=== PATIENT | female | born 1960 | race American Indian/Alaskan Native ===

== ENCOUNTER 2021-05-01 15:42 | Emergency (ER) | payer SELFPAY ==
--- NOTE | 2021-05-01 20:16 | Emergency Department Report ---
- General Chief Complaint: Dyspnea/Respdistress Stated Complaint: FLU SYMPTOMS/HEAD COLD Time Seen by Provider: 05/01/21 20:11 Source: patient Mode of arrival: Ambulatory Limitations: No Limitations - History of Present Illness Initial Comments: 60-year-old female with a past medical history of hypertension and asthma presents to the ER today with complaints of URI symptoms and cough. Patient states that symptoms started a couple days ago. Patient reports productive cough with associated chest congestion, wheezing, and nasal congestion. She denies any chest pain or shortness of breath. She denies any fever or chills. She does admit to tobacco abuse but she states that she quit smoking 2 weeks ago. She states that she does have a nebulizer machine at home but she has only been using it as needed. Patient states that she has never been admitted or intubated for her asthma. She denies any heart disease. She denies any ill contacts or recent travel. She reports no additional symptoms at this time. Patient blood pressure noted to be elevated at triage. She states that she did not take her blood pressure medications prior to coming in and she is also been taking uvry-iqq-bkenngr cough medications. MD Complaint: cough, rhinorrhea, nasal congestion -: Gradual, days(s) (2) - Related Data Previous Rx's Medication Instructions Recorded Last Taken Type ALBUTEROL NEB's [Proventil 0.083% 2.5 mg IH Q4HR 30 Days #1 box 05/01/21 Unknown Rx NEBS] Azithromycin [Zithromax Z-ERIKA] 250 mg PO DAILY #1 pack 05/01/21 Unknown Rx predniSONE [Deltasone] 40 mg PO QDAY #10 tab 05/01/21 Unknown Rx Allergies Allergy/AdvReac Type Severity Reaction Status Date / Time No Known Allergies Allergy Unverified 05/01/21 16:50 ED Review of Systems ROS: Stated complaint: FLU SYMPTOMS/HEAD COLD Other details as noted in HPI Comment: All other systems reviewed and negative Constitutional: denies: chills, fever Eyes: denies: eye pain, eye discharge, vision change ENT: congestion. denies: ear pain, throat pain, dental pain, hearing loss, epistaxis Respiratory: cough, wheezing. denies: orthopnea, shortness of breath, SOB with exertion, SOB at rest Cardiovascular: denies: chest pain, palpitations, dyspnea on exertion, edema, syncope, paroxysmal nocturnal dyspnea Gastrointestinal: denies: abdominal pain, nausea, diarrhea, constipation, hematemesis, hematochezia Genitourinary: denies: urgency, dysuria, frequency, hematuria, discharge, abnormal menses, dyspareunia Musculoskeletal: denies: back pain, joint swelling, arthralgia Skin: denies: rash, lesions, change in color, change in hair/nails, pruritus Neurological: denies: headache, weakness, numbness, paresthesias, confusion, abnormal gait, vertigo Psychiatric: as per HPI. denies: auditory hallucinations, visual hallucinations, homicidal thoughts, suicidal thoughts Hematological/Lymphatic: denies: easy bleeding, easy bruising, swollen glands ED Past Medical Hx - Past Medical History Previous Medical History?: Yes Hx Hypertension: Yes Hx Asthma: Yes - Surgical History Past Surgical History?: Yes Additional Surgical History: tonsils, right shoulder - Medications Home Medications: Home Medications Medication Instructions Recorded Confirmed Last Taken Type ALBUTEROL NEB's [Proventil 0.083% 2.5 mg IH Q4HR 30 Days #1 box 05/01/21 Unknown Rx NEBS] Azithromycin [Zithromax Z-ERIKA] 250 mg PO DAILY #1 pack 05/01/21 Unknown Rx predniSONE [Deltasone] 40 mg PO QDAY #10 tab 05/01/21 Unknown Rx ED Physical Exam - General Limitations: No Limitations General appearance: alert, in no apparent distress - Head Head exam: Present: atraumatic, normocephalic, normal inspection - Eye Eye exam: Present: normal appearance, PERRL, EOMI Pupils: Present: normal accommodation - ENT ENT exam: Present: normal exam, mucous membranes moist - Neck Neck exam: Present: normal inspection, full ROM - Respiratory Respiratory exam: Present: normal lung sounds bilaterally. Absent: respiratory distress, wheezes, rales, rhonchi, stridor - Cardiovascular Cardiovascular Exam: Present: regular rate, normal rhythm, normal heart sounds - GI/Abdominal GI/Abdominal exam: Present: soft. Absent: distended, tenderness, guarding, rebound - Extremities Exam Extremities exam: Absent: pedal edema - Neurological Exam Neurological exam: Present: alert, oriented X3, CN II-XII intact, normal gait - Psychiatric Psychiatric exam: Present: normal affect, normal mood - Skin Skin exam: Present: intact ED Course Vital Signs 05/01/21 05/01/21 16:52 20:09 Temperature 98.4 F Pulse Rate 76 83 Respiratory 18 Rate Blood Pressure 235/112 Blood Pressure 194/104 [Right] O2 Sat by Pulse 99 96 Oximetry ED Medical Decision Making - Radiology Data Radiology results: report reviewed - Medical Decision Making The patient is resting comfortably, is alert and in no distress. The patient has normal mental status and is neurologically intact. She appears well and and there is no significant dehydration. There is no respiratory distress and no signs of systemic toxicity. Her history , exam, diagnostic testing and current condition do not demonstrate an infectious process such as meningitis, severe pneumonia, retropharyngeal abscess, epiglottitis, severe asthma exacerbation, sepsis or other serious bacterial infection requiring further testing, treatment, consultation or admission at this time. Blood pressure was noted to be elevated at triage but patient admitted that she did not take any of her blood pressure medications today. She has no symptoms related to blood pre ssure and there is no evidence of endorgan damage on exam or by history. Discussed suspected diagnosis and treatment plan with patient. The patient's condition is stable and appropriate for discharge. The patient will pursue further outpatient evaluation with the primary care physician or other designated. Critical care attestation.: If time is entered above; I have spent that time in minutes in the direct care of this critically ill patient, excluding procedure time. ED Disposition Clinical Impression: URI (upper respiratory infection), Bronchitis Disposition: DC-01 TO HOME OR SELFCARE Is pt being admited?: No Does the pt Need Aspirin: No Condition: Stable Instructions: Upper Respiratory Infection, Adult, Acute Bronchitis, Adult, [id number], Chronic Bronchitis (ED) Additional Instructions: I recommend that you use your nebulizer every 4 hours for shortness of breath and wheezing. I also recommend that you take the prednisone and antibiotics as prescribed. I recommend that if you are to use a babk-guk-tiqvwto cough medication I would recommend that you use the HBP cough medication from [facility]-fzw-vlucuj[facility]. Recommend lots of fluids. Take your blood pressure medication as soon as you get home. Follow-up with your primary care doctor. Return to the ER if your symptoms changes or worsens in any way. Prescriptions: predniSONE [Deltasone] 40 mg PO QDAY #10 tab ALBUTEROL NEB's [Proventil 0.083% NEBS] 2.5 mg IH Q4HR 30 Days #1 box Azithromycin [Zithromax Z-ERIKA] 250 mg PO DAILY #1 pack Referrals: OMAIRA MANUEL MD [Staff Physician] - 3-5 Days Time of Disposition: 20:57
--- NOTE | 2021-05-01 20:51 | XRay Report ---
CHEST 2 VIEWS INDICATION / CLINICAL INFORMATION: cough. COMPARISON: None available. FINDINGS: SUPPORT DEVICES: None. HEART / MEDIASTINUM: No significant abnormality. LUNGS / PLEURA: No significant pulmonary or pleural abnormality. No pneumothorax. ADDITIONAL FINDINGS: No significant additional findings. IMPRESSION: 1. No acute findings. Signer Name: Ara Gutierrez MD Signed: 05/01/2021 8:47 PM Workstation Name: [id number]
[2021-05-01 23:49] VITALS: BP 176/96
== END 2021-05-01 21:00 | disposition home or self-care (01) ==
LOC: EDBD → ED 15:42
DX: J06.9 Acute upper respiratory infection, unspecified (principal); J40 Bronchitis, not specified as acute or chronic; I10 Essential (primary) hypertension; Z79.899 Other long term (current) drug therapy; Z98.890 Other specified postprocedural states
CPT/HCPCS: 71046

== ENCOUNTER 2021-08-29 08:51 | Emergency (ER) | payer OTHER ==
[2021-08-29] MEDS ORDERED: KETOROLAC 10 MG TAB PO ONE (09:44)
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
[2021-08-29 11:26] VITALS: BP 228/111
--- NOTE | 2021-09-09 11:50 | Electrocardiograph Report ---
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
== END 2021-08-29 11:57 | disposition left against medical advice (07) ==
LOC: ED 08:51
DX: S29.012A Strain of muscle and tendon of back wall of thorax, initial encounter (principal); S46.811A Strain of other muscles, fascia and tendons at shoulder and upper arm level, right arm, initial encounter; I10 Essential (primary) hypertension; J45.909 Unspecified asthma, uncomplicated; F17.200 Nicotine dependence, unspecified, uncomplicated; Z79.899 Other long term (current) drug therapy; V87.7XXA Person injured in collision between other specified motor vehicles (traffic), initial encounter; Y93.89 Activity, other specified; Y92.89 Other specified places as the place of occurrence of the external cause; Y99.8 Other external cause status
CPT/HCPCS: 72125; 93005; 99284